=== PATIENT | female | born 1970 | race American Indian/Alaskan Native ===

== ENCOUNTER 2019-06-03 22:51 | Inpatient (IN) | payer SELFPAY ==
[2019-06-03] MEDS ORDERED: D50W (25GM) Syringe IV ONE (23:02)
[2019-06-03] MEDS ORDERED: LEVOPHED DRIP 4 MG/NS 250 ML 4 MG/250 ML BAG IV ONE (23:05)
[2019-06-03] MEDS ORDERED: NACL 0.9% 1000 ML 1,000 ML ONE (23:09)
[2019-06-03] MEDS ORDERED: LEVOPHED DRIP 4 MG/NS 250 ML 4 MG/250 ML BAG IV SCH (23:15)
[2019-06-03] MEDS ORDERED: NACL 0.9% 1000 ML 1,000 ML IV ONE (23:17)
--- NOTE | 2019-06-03 23:18 | Emergency Department Report ---
ED General Adult HPI - General Stated complaint: HYPOGLYCEMIA Time Seen by Provider: 06/03/19 22:52 Source: patient, EMS Mode of arrival: Stretcher Limitations: No Limitations - History of Present Illness Initial comments: Patient is a 49 -year-old female that presents emergency room with a syncopal episode. Patient was found down by EMS at home and became responsive after flui ds. Patient found to be hypoxic and bradycardic. Patient denies pain. Patient states she feels weak. Patient denies chest pain shortness of breath. Patient denies trauma. Patient is A&OX1. Patient is lethargic. report received from EMS. EMS states they placed the patient on normal saline and Levophed due to her potential. Patient was also paced by EMS. -: Sudden Consistency: intermittent - Related Data Home Medications Medication Instructions Recorded Confirmed Last Taken Apixaban [Eliquis] 1 tab PO Q12HR 06/04/19 06/04/19 Unknown Gabapentin [Neurontin] 300 mg PO QPM 06/04/19 06/04/19 Unknown Levothyroxine [Synthroid] 125 mcg PO QAM 06/04/19 06/04/19 Unknown Metoprolol Xl [Metoprolol 50 mg PO QDAY 06/04/19 06/04/19 Unknown SUCCINATE ER TAB] Torsemide [Demadex] 100 mg PO QDAY 06/04/19 06/04/19 Unknown Allergies Allergy/AdvReac Type Severity Reaction Status Date / Time No Known Allergies Allergy Verified 06/04/19 01:32 ED Review of Systems ROS: Stated complaint: HYPOGLYCEMIA Other details as noted in HPI Constitutional: weakness. denies: chills, fever Eyes: denies: eye pain, eye discharge, vision change ENT: denies: ear pain, throat pain Respiratory: denies: cough, shortness of breath, wheezing Cardiovascular: denies: chest pain, palpitations Endocrine: no symptoms reported Gastrointestinal: denies: abdominal pain, nausea, diarrhea Genitourinary: denies: urgency, dysuria, discharge Musculoskeletal: denies: back pain, joint swelling, arthralgia Skin: denies: rash, lesions Neurological: weakness, confusion. denies: headache, paresthesias Psychiatric: denies: anxiety, depression Hematological/Lymphatic: denies: easy bleeding, easy bruising ED Past Medical Hx - Past Medical History Previous Medical History?: Yes Hx Hypertension: Yes Hx Congestive Heart Failure: Yes Hx Diabetes: No Hx Liver Disease: No Hx Renal Disease: No Hx COPD: Yes Additional medical history: graves disease - Surgical History Past Surgical History?: No - Family History Family history: no significant - Social History Smoking Status: Former Smoker Substance Use Type: None - Medications Home Medications: Home Medications Medication Instructions Recorded Confirmed Last Taken Type Apixaban [Eliquis] 1 tab PO Q12HR 06/04/19 06/04/19 Unknown History Gabapentin [Neurontin] 300 mg PO QPM 06/04/19 06/04/19 Unknown History Levothyroxine [Synthroid] 125 mcg PO QAM 06/04/19 06/04/19 Unknown History Metoprolol Xl [Metoprolol 50 mg PO QDAY 06/04/19 06/04/19 Unknown History SUCCINATE ER TAB] Torsemide [Demadex] 100 mg PO QDAY 06/04/19 06/04/19 Unknown History ED Physical Exam - General Limitations: Altered Mental Status General appearance: in no apparent distress, lethargic - Head Head exam: Present: atraumatic, normocephalic - Eye Eye exam: Present: normal appearance - ENT ENT exam: Present: mucous membranes moist - Neck Neck exam: Present: normal inspection - Respiratory Respiratory exam: Present: normal lung sounds bilaterally. Absent: respiratory distress - Cardiovascular Cardiovascular Exam: Present: regular rate, normal rhythm. Absent: systolic murmur, diastolic murmur, rubs, gallop - GI/Abdominal GI/Abdominal exam: Present: soft, normal bowel sounds - Rectal Rectal exam: Present: deferred - Extremities Exam Extremities exam: Present: normal inspection - Back Exam Back exam: Present: normal inspection - Neurological Exam Neurological exam: Present: altered - Skin Skin exam: Present: warm, dry, intact, normal color. Absent: rash ED Course Vital Signs 06/03/19 06/03/19 06/03/19 19:24 19:30 19:46 Temperature Pulse Rate 136 H 141 H 130 H Respiratory 38 H 55 H 53 H Rate Blood Pressure O2 Sat by Pulse 98 95 99 Oximetry 06/03/19 06/03/19 06/03/19 20:00 20:16 23:00 Temperature Pulse Rate 134 H 136 H 75 Respiratory 47 H 59 H 24 Rate Blood Pressure O2 Sat by Pulse 100 98 Oximetry 06/03/19 06/03/19 06/03/19 23:16 23:30 23:35 Temperature 96.2 F L Pulse Rate 70 Respiratory 17 19 16 Rate Blood Pressure 110/87 93/70 55/23 O2 Sat by Pulse 95 90 Oximetry 06/03/19 06/04/19 06/04/19 23:46 00:00 00:15 Temperature Pulse Rate 79 75 Respiratory 17 25 H 22 Rate Blood Pressure 93/74 154/133 107/80 O2 Sat by Pulse Oximetry 06/04/19 06/04/19 06/04/19 00:30 00:46 01:00 Temperature Pulse Rate 69 79 Respiratory 21 23 19 Rate Blood Pressure 117/77 122/87 113/92 O2 Sat by Pulse 67 L Oximetry 06/04/19 06/04/19 06/04/19 01:15 01:20 01:30 Temperature Pulse Rate 72 75 Respiratory 20 Rate Blood Pressure 122/89 116/70 116/70 O2 Sat by Pulse 98 Oximetry 06/04/19 06/04/19 06/04/19 01:46 02:00 02:15 Temperature Pulse Rate 61 59 L 54 L Respiratory 20 20 21 Rate Blood Pressure 90/51 86/49 73/39 O2 Sat by Pulse 100 100 100 Oximetry 06/04/19 06/04/19 06/04/19 02:58 03:00 03:15 Temperature Pulse Rate 53 L 52 L Respiratory 20 20 Rate Blood Pressure 73/39 96/67 92/60 O2 Sat by Pulse 96 97 Oximetry 06/04/19 06/04/19 06/04/19 03:30 03:43 03:45 Temperature Pulse Rate 55 L 50 L Respiratory 20 20 Rate Blood Pressure 90/61 97/58 O2 Sat by Pulse 100 100 83 L Oximetry 06/04/19 06/04/19 06/04/19 04:00 04:15 04:30 Temperature Pulse Rate 53 L 60 Respiratory 20 15 17 Rate Blood Pressure 96/58 94/62 96/66 O2 Sat by Pulse Oximetry 06/04/19 06/04/19 06/04/19 04:45 05:00 05:08 Temperature 98.2 F Pulse Rate 49 L 52 L Respiratory 20 13 Rate Blood Pressure 105/70 72/34 O2 Sat by Pulse 100 Oximetry 06/04/19 06/04/19 06/04/19 05:15 05:30 05:35 Temperature Pulse Rate 106 H 114 H Respiratory 21 22 Rate Blood Pressure 152/113 148/112 O2 Sat by Pulse 100 76 L 99 Oximetry 06/04/19 06/04/19 06/04/19 05:45 06:00 06:15 Temperature Pulse Rate 77 78 96 H Respiratory 20 20 20 Rate Blood Pressure 91/61 117/75 137/92 O2 Sat by Pulse 89 68 L 72 L Oximetry 06/04/19 06/04/19 06/04/19 06:30 06:45 06:54 Temperature Pulse Rate 90 78 Respiratory 20 20 Rate Blood Pressure 110/77 102/61 O2 Sat by Pulse 75 L 100 97 Oximetry 06/04/19 06/04/19 06/04/19 07:00 07:15 07:30 Temperature Pulse Rate 76 87 Respiratory 20 20 20 Rate Blood Pressure 92/55 114/77 129/94 O2 Sat by Pulse 92 69 L 89 Oximetry 06/04/19 06/04/19 06/04/19 07:45 07:52 08:00 Temperature Pulse Rate 101 H 60 109 H Respiratory 20 19 Rate Blood Pressure 138/91 132/94 O2 Sat by Pulse 87 98 85 Oximetry 06/04/19 06/04/19 06/04/19 08:15 08:30 08:45 Temperature Pulse Rate 104 H 100 H 103 H Respiratory 20 20 20 Rate Blood Pressure 130/93 122/92 122/87 O2 Sat by Pulse 86 88 89 Oximetry 06/04/19 06/04/19 06/04/19 09:00 09:15 09:30 Temperature Pulse Rate 101 H 104 H 103 H Respiratory 20 20 20 Rate Blood Pressure 110/88 118/85 113/84 O2 Sat by Pulse 88 89 89 Oximetry 06/04/19 09:45 Temperature Pulse Rate 97 H Respiratory 20 Rate Blood Pressure 118/80 O2 Sat by Pulse 90 Oximetry - Reevaluation(s) Reevaluation #1: Initial evaluation done. Patient found to be hypotensive and bradycardic. Patient also found to be hypoglycemic. Patient given 2 Amps of D50. glucose 21.. 06/03/19 22:52 Reevaluation #2: Central line placed due to patient on Levophed and hypotension. Patient's blood pressure improved. Patient had a right femoral line placed, see procedure note. While placing central line the patient became hypoxic and decreased responsiveness. Patient was then intubated. 06/04/19 00:47 Reevaluation #3: Blood pressure improving. Patient is on a vent. Patient resting comfortably. Patient on Levophed drip and drip will be decreased as blood pressure continues to improve. 06/04/19 01:34 - Consultations Consultation #1: Nephrology consulted, Dr. Perkins. Dr. Burgos recommends admission and agrees with insulin, D50, Kayexalate and calcium. No further orders received from nephrology. 06/04/19 01:44 Consultation #2: Hospitalist consult for admission. Hospitalist to admit patient. 06/04/19 03:33 - Central Line Placement Right Femoral Consent Obtained: emergent situation Time Out Performed: Yes Patient Placed on Monitor/Pulse Ox: Yes MD Prep: mask, gown, gloves Central Line Prep: Chlorhexidine scrub, sterile drapes applied Local Anesthesia Used: Lidocaine 1% Ultrasound Used for Placement: Yes Central Line Lumen Inserted: triple Bloods Obtained for Lab: No Central Line Position: good blood return, all ports aspirated, flus, sutured in place with 2-0 Dressing Applied: Tegaderm Patient Tolerated Procedure: well, no complications - Intubation Time Out Performed: Yes Sedative: Etomidate Paralytic: Rocuronium Laryngoscope: fiberoptic video scope Assist Device Used: fiberoptic device ET Tube Size: 7.5 Tube Secured Depth (cm): 22 Tube Secured Location: teeth Tube Placement Confirmation: visualized tube passing t, equal breath sounds bilat, no breath sounds over epi, confirmation by capnometr Patient Tolerated Procedure: well, no complications Intubation Complications: none ED Medical Decision Making - Lab Data Result diagrams: 06/04/19 04:41 06/04/19 04:41 - EKG Data -: EKG Interpreted by Me EKG shows normal: axis, intervals, QRS complexes, ST-T waves Rate: normal - EKG Data Interpretation: other (Sebastián) - Radiology Data Radiology results: report reviewed, image reviewed interpreted by me: Patient ET tube in good placement. CHEST 1 VIEW 06/04/2019 12:55 AM INDICATION / CLINICAL INFORMATION: intubation. COMPARISON: Chest x-ray 06/03/2019 FINDINGS: SUPPORT DEVICES: ET tube has tip 4 cm above shannon. HEART / MEDIASTINUM: Cardiac silhouette remains markedly enlarged with globular configuration, unchanged. LUNGS / PLEURA: The left lower lobe is not visualized secondary to the markedly enlarged cardiac silhouette. No large effusion or definite infiltrate is seen however. No significant pulmonary or pleural abnormality. No pneumothorax. ADDITIONAL FINDINGS: No significant additional findings. IMPRESSION: 1. Marked cardiomegaly, unchanged. CT HEAD WITHOUT CONTRAST INDICATION / CLINICAL INFORMATION: Syncope. TECHNIQUE: All CT scans at this location are performed using CT dose reduction for ALARA by means of automated exposure control. COMPARISON: None available. FINDINGS: HEMORRHAGE: None. EXTRA-AXIAL SPACES: Normal in size and morphology for the patient's age. VENTRICULAR SYSTEM: Normal in size and morphology for the patient's age. CEREBRAL PARENCHYMA: Moderate periventricular and mild deep white matter microangiopathy No significant abnormality. No acute territorial infarct. MIDLINE SHIFT OR HERNIATION: None. CEREBELLUM / BRAINSTEM: No significant abnormality. ORBITS: Normal as visualized. SOFT TISSUES of HEAD: No significant abnormality. CALVARIUM: No significant abnormality. PARANASAL SINUSES / MASTOID AIR CELLS: Normal as visualized. ADDITIONAL FINDINGS: None. IMPRESSION: 1. No acute intracranial abnormality. 2. Mild to moderate microangiopathy - Medical Decision Making Patient is a 49-year-old female that presents to the ER for syncopal episode. Patient was reported by EMS. EMS found the patient to be hypotensive and bradycardic. Patient was started on a Levophed drip by EMS. While in the ER the patient had a central line placed for pressors. Patient will have the central line placed became hypoxic and decreased responsiveness and the patient was intubated. Patient improved well in the ER. Patient's labs are consistent with acute renal failure and multiple abnormalities and hyperkalemia. - Differential Diagnosis syncope. Dehydration. Hypotension. Critical Care Time: Yes Critical care attestation.: If time is entered above; I have spent that time in minutes in the direct care of this critically ill patient, excluding procedure time. Critical Care Time: 80 minutes ED Disposition Clinical Impression: Hypoxia, Hyperkalemia, Elevated troponin Syncope Qualifiers: Syncope type: unspecified Qualified Code(s): R55 - Syncope and collapse Altered mental state Qualifiers: Altered mental status type: unspecified Qualified Code(s): R41.82 - Altered mental status, unspecified Hypotension Qualifiers: Hypotension type: unspecified hypotension type Qualified Code(s): I95.9 - Hypotension, unspecified Afib Qualifiers: Atrial fibrillation type: unspecified Qualified Code(s): I48.91 - Unspecified atrial fibrillation Respiratory failure Qualifiers: Chronicity: acute Respiratory failure complication: hypoxia Qualified Code(s): J96.01 - Acute respiratory failure with hypoxia Disposition: 09 OP ADMIT IP TO THIS HOSP Is pt being admited?: Yes Does the pt Need Aspirin: No Condition: Critical Time of Disposition: 03:33
[2019-06-03 23:58] LABS: Mean Corpuscular HGB Conc 31 % (30-34); Mean Corpuscular Volume 91 fl (79-97); Red Cell Distribution Width 19.2 % (13.2-15.2)
[2019-06-03 23:59] LABS: Hematocrit 43.7 % (30.3-42.9); Hemoglobin 13.5 gm/dl (10.1-14.3); Platelet Count 172 K/mm3 (140-440)
--- NOTE | 2019-06-03 23:59 | XRay Report ---
CHEST 1 VIEW 06/03/2019 11:23 PM INDICATION / CLINICAL INFORMATION: Syncope. COMPARISON: None available. FINDINGS: SUPPORT DEVICES: None. HEART / MEDIASTINUM: Cardiac silhouette remains markedly enlarged. LUNGS / PLEURA: There is silhouetting of the left hemidiaphragm secondary to the enlarged cardiac reza houette, however, no large infiltrate or pleural effusion is seen. No significant pulmonary or pleura l abnormality. No pneumothorax. ADDITIONAL FINDINGS: No significant additional findings. IMPRESSION: 1. Marked cardiomegaly without CHF Signer Name: Jose Martin Morgan MD Signed: 06/03/2019 11:55 PM Workstation Name: [id number]
[2019-06-04 00:12] LABS: Albumin 3.2 g/dL (3.9-5); Calcium 8.8 mg/dL (8.4-10.2)
[2019-06-04] MEDS ORDERED: fentaNYL DRIP Premix 2,000 MCG/100 ML BAG IV ONE (00:44)
[2019-06-04] MEDS ORDERED: ZEMURON IV ONE ×2 (00:50→11:51)
[2019-06-04] MEDS ORDERED: AMIDATE IV ONE ×2 (00:50→11:51)
[2019-06-04] MEDS: fentaNYL DRIP Premix 2,000 MCG/100 ML BAG IV SCH ×2 (00:50→11:46)
[2019-06-04] MEDS ORDERED: MAXIPIME/NS 2 GM/100 ML 2 GM/100 ML BAG IV ONE (00:54)
[2019-06-04] MEDS ORDERED: CALCIUM CHLORIDE IV ONE (00:56)
[2019-06-04] MEDS ORDERED: HumuLIN R IV ONE (00:56)
[2019-06-04] MEDS ORDERED: D50W (25GM) Syringe IV ONE (00:56)
--- NOTE | 2019-06-04 01:28 | XRay Report ---
CHEST 1 VIEW 06/04/2019 12:55 AM INDICATION / CLINICAL INFORMATION: intubation. COMPARISON: Chest x-ray 06/03/2019 FINDINGS: SUPPORT DEVICES: ET tube has tip 4 cm above shannon. HEART / MEDIASTINUM: Cardiac silhouette remains markedly enlarged with globular configuration, unchan ged. LUNGS / PLEURA: The left lower lobe is not visualized secondary to the markedly enlarged cardiac silh ouette. No large effusion or definite infiltrate is seen however. No significant pulmonary or pleural abnormality. No pneumothorax. ADDITIONAL FINDINGS: No significant additional findings. IMPRESSION: 1. Marked cardiomegaly, unchanged. Signer Name: Jose Martin Morgan MD Signed: 06/04/2019 1:24 AM Workstation Name: [id number]
[2019-06-04 01:31] LABS: Chol/HDL Ratio 3.8 %
[2019-06-04 01:42] LABS: Band Neutrophils # (Manual) 0.2 K/mm3; Basophils % (Manual) 0 % (0.0-1.8); Eosinophils % (Manual) 0 % (0.0-4.3); Large Platelets 1+; Total Cells Counted 100
[2019-06-04 01:43] LABS: Platelet Estimate Consistent w Auto; RBC Morphology Normal
[2019-06-04] MEDS ORDERED: KIONEX PO ONE (01:44)
[2019-06-04] MEDS ORDERED: NACL 0.9% 1000 ML 1,000 ML IV ONE (03:14)
--- NOTE | 2019-06-04 03:16 | Cat Scan Report ---
CT HEAD WITHOUT CONTRAST INDICATION / CLINICAL INFORMATION: Syncope. TECHNIQUE: All CT scans at this location are performed using CT dose reduction for ALARA by means of automated e xposure control. COMPARISON: None available. FINDINGS: HEMORRHAGE: None. EXTRA-AXIAL SPACES: Normal in size and morphology for the patient's age. VENTRICULAR SYSTEM: Normal in size and morphology for the patient's age. CEREBRAL PARENCHYMA: Moderate periventricular and mild deep white matter microangiopathy No significa nt abnormality. No acute territorial infarct. MIDLINE SHIFT OR HERNIATION: None. CEREBELLUM / BRAINSTEM: No significant abnormality. ORBITS: Normal as visualized. SOFT TISSUES of HEAD: No significant abnormality. CALVARIUM: No significant abnormality. PARANASAL SINUSES / MASTOID AIR CELLS: Normal as visualized. ADDITIONAL FINDINGS: None. IMPRESSION: 1. No acute intracranial abnormality. 2. Mild to moderate microangiopathy Signer Name: Jose Martin Morgan MD Signed: 06/04/2019 3:12 AM Workstation Name: [email or web address]
[2019-06-04] MEDS ORDERED: KIONEX ONE (04:23)
[2019-06-04] MEDS ORDERED: INTROPIN DRIP 800 MG/D5W 250 ML 800 MG/250 ML BAG IV ONE (04:25)
[2019-06-04] MEDS ORDERED: ZOFRAN IV PRN (04:25)
[2019-06-04] MEDS ORDERED: SODIUM CHLORIDE FLUSH SYRINGE 10 ML IV PRN (04:25)
[2019-06-04] MEDS ORDERED: TYLENOL PO PRN (04:25)
--- NOTE | 2019-06-04 04:30 | History and Physical Report ---
History of Present Illness Date of examination: 06/04/19 History of present illness: 49-year-old woman with a history of hypertension, CHF, Graves' disease, COPD was brought to the emergency room for evaluation of unresponsiveness. In the emergency room she was bradycardic, hypotensive, started on Levophed drip and IV fluids. She was found to be in renal failure, unclear if this is new, status post cefepime and started on sedation, review of system is unobtainable PAST MEDICAL HISTORY:ypertension, CHF, Graves' disease, COPD PAST SURGICAL HISTORY: Unknown FAMILY HISTORY:Unknown SOCIAL HISTORY: Unknown Medications and Allergies Allergies Allergy/AdvReac Type Severity Reaction Status Date / Time No Known Allergies Allergy Verified 06/04/19 01:32 Active Meds: Active Medications Acetaminophen (Tylenol) 650 mg PO Q4H PRN PRN Reason: Pain MILD(1-3)/Fever >100.5/GOMEZ Enoxaparin Sodium (Lovenox) 30 mg SUB-Q QDAY SUN Fentanyl Citrate (Fentanyl Drip Premix) 2,000 mcg in 100 mls @ 4.581 mls/hr IV TITR SUN; Protocol Last Admin: 06/04/19 00:50 Dose: 2 mcg/kg/hr, 9.18 mls/hr Documented by: Norepinephrine (Levophed Drip 4 Mg/Ns 250 Ml) 4 mg in 250 mls @ 7.5 mls/hr IV TITR SUN; Protocol Last Titration: 06/04/19 02:01 Dose: 20 mcg/min, 75 mls/hr Documented by: Sodium Chloride (Nacl 0.9% 1000 Ml) 1,000 mls @ 250 mls/hr IV ONCE ONE Stop: 06/04/19 07:13 Sodium Chloride (Nacl 0.9% 1000 Ml) 1,000 mls @ 75 mls/hr IV DIRECT SUN Dopamine HCl/Dextrose (Intropin Drip 800 Mg/D5w 250 Ml) 800 mg in 250 mls @ 3.436 mls/hr IV TITR ONE; Protocol Stop: 06/07/19 05:10 Ondansetron HCl (Zofran) 4 mg IV Q8H PRN PRN Reason: Nausea And Vomiting Sodium Chloride (Sodium Chloride Flush Syringe 10 Ml) 10 ml IV BID SUN Sodium Chloride (Sodium Chloride Flush Syringe 10 Ml) 10 ml IV PRN PRN PRN Reason: LINE FLUSH Exam - Physical Exam Narrative exam: General Apperance: The patient lying in bed no acute distress, intubated HEENT: Normocephalic, atraumatic. Pupils pinpoint, equally round and reactive to light, unable to do extraocular movement intact, and no sclericterus or JVD or thyromegaly or nodule. Neck supple, no carotid bruit, mucous membranes moist, ET tube in place Heart: S1-S2, regular is rhythm Lungs: Clear to auscultation bilaterally, breathing comfortable Abdomen: Positive bowel sounds, soft, nondistended, no organomegaly Extremities: No edema cyanosis clubbing Skin: no rash, nodule, warm and dry Neuro: sedated - Constitutional Vitals: Temp Pulse Resp BP Pulse Ox 96.2 F L 50 L 20 90/61 100 06/03/19 23:35 06/04/19 03:43 06/04/19 03:30 06/04/19 03:43 06/04/19 03:43 Results - Labs CBC & Chem 7: 06/04/19 04:41 06/04/19 04:41 Labs: Abnormal lab results 06/03/19 06/03/19 06/03/19 Range/Units 23:05 23:31 23:31 Hct 43.7 H (30.3-42.9) % RDW 19.2 H (13.2-15.2) % Seg Neuts % (Manual) 85.0 H (40.0-70.0) % Lymphocytes % (Manual) 11.0 L (13.4-35.0) % Nucleated RBC % 6.0 H (0.0-0.9) % Lymphocytes # (Manual) 1.0 L (1.2-5.4) K/mm3 POC ABG pCO2 (35-45) POC ABG pO2 (80-105) Sodium 134 L (137-145) mmol/L Potassium 6.0 H (3.6-5.0) mmol/L Chloride 83.1 L (98-107) mmol/L Carbon Dioxide 20 L (22-30) mmol/L BUN 61 H (7-17) mg/dL Creatinine 4.0 H (0.7-1.2) mg/dL Glucose 299 H (65-100) mg/dL POC Glucose < 40 L (70-105) Total Bilirubin 5.20 H (0.1-1.2) mg/dL AST 139 H (5-40) units/L ALT 61 H (7-56) units/L Alkaline Phosphatase 194 H (35-129) units/L Total Creatine Kinase 1224 H (30-135) units/L CK-MB (CK-2) 29.0 H (0.0-4.0) ng/mL Troponin T 0.320 H* (0.00-0.029) ng/mL Total Protein 8.3 H (6.3-8.2) g/dL Albumin 3.2 L (3.9-5) g/dL HDL Cholesterol 26 L (40-59) mg/dL 06/04/19 06/04/19 06/04/19 Range/Units 00:54 03:40 04:01 Hct (30.3-42.9) % RDW (13.2-15.2) % Seg Neuts % (Manual) (40.0-70.0) % Lymphocytes % (Manual) (13.4-35.0) % Nucleated RBC % (0.0-0.9) % Lymphocytes # (Manual) (1.2-5.4) K/mm3 POC ABG pCO2 33.1 L (35-45) POC ABG pO2 122 H (80-105) Sodium 136 L (137-145) mmol/L Potassium (3.6-5.0) mmol/L Chloride 86.8 L (98-107) mmol/L Carbon Dioxide 19 L (22-30) mmol/L BUN 63 H (7-17) mg/dL Creatinine 4.3 H (0.7-1.2) mg/dL Glucose 192 H (65-100) mg/dL POC Glucose 260 H (70-105) Total Bilirubin (0.1-1.2) mg/dL AST (5-40) units/L ALT (7-56) units/L Alkaline Phosphatase (35-129) units/L Total Creatine Kinase (30-135) units/L CK-MB (CK-2) (0.0-4.0) ng/mL Troponin T (0.00-0.029) ng/mL Total Protein (6.3-8.2) g/dL Albumin (3.9-5) g/dL HDL Cholesterol (40-59) mg/dL - Imaging and Cardiology EKG: image reviewed Abdominal x-ray: report reviewed CT Scan - head: report reviewed Assessment and Plan Assessment Acute respiratory failure hypotension, rule out sepsis renal failure, ?Acute Hyperkalemia Bradycardia probably secondary to hyperkalemia Abnormal cardiac enzymes CHF, stable Graves' disease Plan Admit to medicine Continue sedation Start IV fluids, check cardiac enzymes, echo Consult cardiology, case discussed with Dr. Gunter Consult renal, obtain ultrasound of the kidneys Start Zosyn, vancomycin, obtain blood cultures Check BMP,pt/inr, LFT, TSH, check lactate, consult critical care DVT prophylaxis, check fingersticks
[2019-06-04] MEDS ORDERED: NACL 0.9% 1000 ML 1,000 ML IV SCH (05:00)
[2019-06-04 05:07] LABS: Hematocrit 42.1 % (30.3-42.9); Hemoglobin 13.2 gm/dl (10.1-14.3); Mean Corpuscular HGB Conc 31 % (30-34); Mean Corpuscular Volume 89 fl (79-97); Red Blood Count 4.71 M/mm3 (3.65-5.03)
[2019-06-04 05:10] LABS: INR 3.86 (0.87-1.13)
[2019-06-04 05:12] LABS: Partial Thromboplastin Time 47.5 Sec. (24.2-36.6)
[2019-06-04 05:16] LABS: Creatine Kinase MB 25.2 ng/mL (0.0-4.0)
[2019-06-04 05:23] LABS: Albumin 2.9 g/dL (3.9-5); Calcium 9.1 mg/dL (8.4-10.2)
--- NOTE | 2019-06-04 05:32 | XRay Report ---
ABDOMEN 1 VIEW(S) 06/04/2019 4:15 AM INDICATION / CLINICAL INFORMATION: og tube confirmation. COMPARISON: None available. FINDINGS: The tip of an esophagogastric tube projects over the proximal stomach with side hole noted at GE junc tion and should be advanced further distally. There is moderate gaseous distention of stomach.. Signer Name: Jose Martin Morgan MD Signed: 06/04/2019 5:27 AM Workstation Name: [email or web address]
[2019-06-04 05:46] LABS: Basophils % (Manual) 0 % (0.0-1.8); Eosinophils % (Manual) 0 % (0.0-4.3); Total Cells Counted 100
[2019-06-04 05:48] LABS: Anisocytosis 1+; Large Platelets 1+; Platelet Count 159 K/mm3 (140-440); Platelet Estimate Consistent w Auto
[2019-06-04 05:57] LABS: Albumin 2.8 g/dL (3.9-5); Bilirubin,Direct 2.6 mg/dL (0-0.2)
[2019-06-04] MEDS ORDERED: ZOSYN/NS 2.25 GM/50ML 2.25 GM/50 ML BAG IV SCH (06:00)
--- NOTE | 2019-06-04 06:29 | Ultrasound Report ---
ULTRASOUND RENAL INDICATION: arf. COMPARISON: No relevant prior imaging study available. FINDINGS: RIGHT KIDNEY: Size: 12.7 cm. Echogenicity: Echogenic. Cortical thickness: Normal. Hydronephrosis: None. Cyst or mass: None. Stones: None. LEFT KIDNEY: Size: 11.7 cm. Echogenicity: Echogenic. Cortical thickness: Normal. Hydronephrosis: None. Cyst or mass: None. Stones: None. Urinary Bladder: Collapsed containing Ribeiro catheter. Free Fluid: None. Additional Findings: None. IMPRESSION 1. Echogenic kidneys characteristic for medical renal disease. No hydronephrosis.. Signer Name: Jose Martin Morgan MD Signed: 06/04/2019 6:25 AM Workstation Name: [email or web address]
[2019-06-04] MEDS ORDERED: D50W (25GM) Syringe IV PRN (06:47)
[2019-06-04] MEDS ORDERED: VANCOMYCIN/NS 1 GM/250 ML 1 GM/250 ML BAG IV ONE (07:30)
[2019-06-04] MEDS ORDERED: PEPCID IV SCH (10:00)
[2019-06-04] MEDS ORDERED: LOVENOX SUB-Q SCH (10:00)
[2019-06-04] MEDS ORDERED: SODIUM CHLORIDE FLUSH SYRINGE 10 ML IV SCH (10:00)
[2019-06-04] MEDS ORDERED: SYNTHROID IV SCH (10:00)
--- NOTE | 2019-06-04 10:21 | Event Note ---
Date: 06/04/19 Remains on mechanical Vent support, noted propotosis, continue current management and plan, IV synthroid added, Free T4 Pending. Will consider Prop ranolol when off pressors.
[2019-06-04 11:00] LABS: Creatine Kinase MB 21.1 ng/mL (0.0-4.0)
--- NOTE | 2019-06-04 11:29 | Consultation ---
History of Present Illness Consult date: 06/04/19 Requesting physician: RICHARD MCNAMARA Reason for consult: other (Acute Hypoxemic Resp Failure; CMOP) History of present illness: PULMONARY/CCM CONSULT NOTE (Full dictation # [id number]) Please see dictated notes for full details Medications and Allergies Allergies Allergy/AdvReac Type Severity Reaction Status Date / Time No Known Allergies Allergy Verified 06/04/19 01:32 Home Medications Medication Instructions Recorded Confirmed Last Taken Type Apixaban [Eliquis] 1 tab PO Q12HR 06/04/19 06/04/19 Unknown History Gabapentin [Neurontin] 300 mg PO QPM 06/04/19 06/04/19 Unknown History Levothyroxine [Synthroid] 125 mcg PO QAM 06/04/19 06/04/19 Unknown History Metoprolol Xl [Metoprolol 50 mg PO QDAY 06/04/19 06/04/19 Unknown History SUCCINATE ER TAB] Torsemide [Demadex] 100 mg PO QDAY 06/04/19 06/04/19 Unknown History Active Meds: Active Medications Acetaminophen (Tylenol) 650 mg PO Q4H PRN PRN Reason: Pain MILD(1-3)/Fever >100.5/GOMEZ Dextrose (D50w (25gm) Syringe) 50 ml IV PRN PRN PRN Reason: Hypoglycemia Famotidine (Pepcid) 20 mg IV DAILY SUN Fentanyl Citrate (Fentanyl Drip Premix) 2,000 mcg in 100 mls @ 4.581 mls/hr IV TITR SUN; Protocol Last Admin: 06/04/19 00:50 Dose: 2 mcg/kg/hr, 9.18 mls/hr Documented by: Sodium Chloride (Nacl 0.9% 1000 Ml) 1,000 mls @ 75 mls/hr IV DIRECT SUN Dopamine HCl/Dextrose (Intropin Drip 800 Mg/D5w 250 Ml) 800 mg in 250 mls @ 3.436 mls/hr IV TITR ONE; Protocol Stop: 06/07/19 05:10 Last Titration: 06/04/19 06:17 Dose: 2 mcg/kg/min, 3.436 mls/hr Documented by: Piperacillin Sod/Tazobactam Sod (Zosyn/Ns 2.25 Gm/50ml) 2.25 gm in 50 mls @ 100 mls/hr IV Q8H SUN; Protocol Last Admin: 06/04/19 08:05 Dose: 100 mls/hr Documented by: Levothyroxine Sodium (Synthroid) 100 mcg IV DAILY@0600 [facility] Ondansetron HCl (Zofran) 4 mg IV Q8H PRN PRN Reason: Nausea And Vomiting Sodium Chloride (Sodium Chloride Flush Syringe 10 Ml) 10 ml IV BID [facility] Sodium Chloride (Sodium Chloride Flush Syringe 10 Ml) 10 ml IV PRN PRN PRN Reason: LINE FLUSH Physical Examination Vital signs: Vital Signs Pulse Resp Pulse Ox 136 H 38 H 98 06/03/19 19:24 06/03/19 19:24 06/03/19 19:24 Results - Laboratory Findings CBC and BMP: 06/04/19 04:41 06/04/19 04:41 ABG POC ABG pH 7.426 (7.35-7.45) 06/04/19 04:01 POC ABG pCO2 33.1 (35-45) L 06/04/19 04:01 POC ABG pO2 122 (80-105) H 06/04/19 04:01 POC ABG HCO3 21.8 (22-26 mml/L) 06/04/19 04:01 POC ABG Total CO2 23 (23-27mmol/L) 06/04/19 04:01 POC ABG O2 Sat 99 06/04/19 04:01 PT/INR, D-dimer PT 37.4 Sec. (12.2-14.9) H 06/04/19 04:41 INR 3.86 (0.87-1.13) H 06/04/19 04:41 Abnormal lab findings: Abnormal Labs 06/03/19 06/03/19 06/03/19 23:05 23:31 23:31 Hct 43.7 H RDW 19.2 H Seg Neuts % (Manual) 85.0 H Lymphocytes % (Manual) 11.0 L Nucleated RBC % 6.0 H Seg Neutrophils # Man Lymphocytes # (Manual) 1.0 L PT INR APTT POC ABG pCO2 POC ABG pO2 Sodium 134 L Potassium 6.0 H Chloride 83.1 L Carbon Dioxide 20 L BUN 61 H Creatinine 4.0 H Glucose 299 H POC Glucose < 40 L Total Bilirubin 5.20 H Direct Bilirubin AST 139 H ALT 61 H Alkaline Phosphatase 194 H Total Creatine Kinase 1224 H CK-MB (CK-2) 29.0 H Troponin T 0.320 H* Total Protein 8.3 H Albumin 3.2 L HDL Cholesterol 26 L TSH 06/04/19 06/04/19 06/04/19 00:54 03:40 04:01 Hct RDW Seg Neuts % (Manual) Lymphocytes % (Manual) Nucleated RBC % Seg Neutrophils # Man Lymphocytes # (Manual) PT INR APTT POC ABG pCO2 33.1 L POC ABG pO2 122 H Sodium 136 L Potassium Chloride 86.8 L Carbon Dioxide 19 L BUN 63 H Creatinine 4.3 H Glucose 192 H POC Glucose 260 H Total Bilirubin Direct Bilirubin AST ALT Alkaline Phosphatase Total Creatine Kinase CK-MB (CK-2) Troponin T 0.276 H* Total Protein Albumin HDL Cholesterol TSH 06/04/19 06/04/19 06/04/19 04:41 04:41 04:41 Hct RDW 19.0 H Seg Neuts % (Manual) 89.0 H Lymphocytes % (Manual) 8.0 L Nucleated RBC % 5.0 H Seg Neutrophils # Man 0.0 L Lymphocytes # (Manual) 0.0 L PT 37.4 H INR 3.86 H APTT 47.5 H POC ABG pCO2 POC ABG pO2 Sodium 135 L Potassium Chloride 85.0 L Carbon Dioxide 18 L BUN 61 H Creatinine 4.3 H Glucose 183 H POC Glucose Total Bilirubin 5.30 H Direct Bilirubin AST 141 H ALT 63 H Alkaline Phosphatase 192 H Total Creatine Kinase CK-MB (CK-2) Troponin T Total Protein Albumin 2.9 L HDL Cholesterol TSH 06/04/19 06/04/19 06/04/19 04:41 04:41 06:58 Hct RDW Seg Neuts % (Manual) Lymphocytes % (Manual) Nucleated RBC % Seg Neutrophils # Man Lymphocytes # (Manual) PT INR APTT POC ABG pCO2 POC ABG pO2 Sodium Potassium Chloride Carbon Dioxide BUN Creatinine Glucose POC Glucose 186 H Total Bilirubin 5.50 H Direct Bilirubin 2.6 H AST 147 H ALT 63 H Alkaline Phosphatase 198 H Total Creatine Kinase 1095 H CK-MB (CK-2) 25.2 H Troponin T 0.241 H* Total Protein Albumin 2.8 L HDL Cholesterol TSH 06/04/19 06/04/19 07:03 10:28 Hct RDW Seg Neuts % (Manual) Lymphocytes % (Manual) Nucleated RBC % Seg Neutrophils # Man Lymphocytes # (Manual) PT INR APTT POC ABG pCO2 POC ABG pO2 Sodium Potassium Chloride Carbon Dioxide BUN Creatinine Glucose POC Glucose Total Bilirubin Direct Bilirubin AST ALT Alkaline Phosphatase Total Creatine Kinase 970 H CK-MB (CK-2) 21.1 H Troponin T 0.270 H* Total Protein Albumin HDL Cholesterol TSH 9.160 H
--- NOTE | 2019-06-04 12:08 | Consultation ---
History of Present Illness Consult date: 06/04/19 Consult reason: abnormal cardiac enzymes History of present illness: Patient is a 49-year old woman who was brought in after she was found unresp onsive. Patient was admitted to CCU and is currently unresponsive on the ventilator. Initial labs revealed multiple metabolic abnormalities including severe hypoglycemia, hyperkalemia, renal insufficiency with a creatinine of 4.3, elevated bilirubin with an INR of 3.8 and a TSH of 9.1. Cardiac enzymes shows a CK/MB of 1224 with a normal relative index, consistent with rhabdomyolysis. 12 lead ECG is atrial fibrillation with low voltage. Ventricular rate is well controlled. Review of [place] records shows the patient has a history of Hypertrophic Cardiomyopathy and permanent Atrial fibrillation on eliquis for oral anticoagulation. Patient also has Graves disease status post thyroidectomy, pulm onary hypertension and hypertension. Medications and Allergies Allergies Allergy/AdvReac Type Severity Reaction Status Date / Time No Known Allergies Allergy Verified 06/04/19 01:32 Active Meds: Active Medications Acetaminophen (Tylenol) 650 mg PO Q4H PRN PRN Reason: Pain MILD(1-3)/Fever >100.5/GOMEZ Dextrose (D50w (25gm) Syringe) 50 ml IV PRN PRN PRN Reason: Hypoglycemia Famotidine (Pepcid) 20 mg IV DAILY SUN Last Admin: 06/04/19 11:47 Dose: 20 mg Documented by: Fentanyl Citrate (Fentanyl Drip Premix) 2,000 mcg in 100 mls @ 4.581 mls/hr IV TITR SUN; Protocol Last Admin: 06/04/19 11:46 Dose: 2 mcg/kg/hr, 9.163 mls/hr Documented by: Sodium Chloride (Nacl 0.9% 1000 Ml) 1,000 mls @ 75 mls/hr IV DIRECT SUN Last Admin: 06/04/19 11:48 Dose: 75 mls/hr Documented by: Dopamine HCl/Dextrose (Intropin Drip 800 Mg/D5w 250 Ml) 800 mg in 250 mls @ 3.436 mls/hr IV TITR ONE; Protocol Stop: 06/07/19 05:10 Last Titration: 06/04/19 06:17 Dose: 2 mcg/kg/min, 3.436 mls/hr Documented by: Piperacillin Sod/Tazobactam Sod (Zosyn/Ns 2.25 Gm/50ml) 2.25 gm in 50 mls @ 100 mls/hr IV Q8H [facility]; Protocol Last Admin: 06/04/19 08:05 Dose: 100 mls/hr Documented by: Levothyroxine Sodium (Synthroid) 100 mcg IV DAILY@0600 [facility] Ondansetron HCl (Zofran) 4 mg IV Q8H PRN PRN Reason: Nausea And Vomiting Sodium Chloride (Sodium Chloride Flush Syringe 10 Ml) 10 ml IV BID SUN Last Admin: 06/04/19 11:47 Dose: 10 ml Documented by: Sodium Chloride (Sodium Chloride Flush Syringe 10 Ml) 10 ml IV PRN PRN PRN Reason: LINE FLUSH Physical Examination Vital Signs Pulse Resp Pulse Ox 136 H 38 H 98 06/03/19 19:24 06/03/19 19:24 06/03/19 19:24 General appearance: other (unresponsive on the vent) Cardiac: Positive: irregularly irregular Results 06/04/19 04:41 06/04/19 04:41 Cardiac Enzymes 06/03/19 06/04/19 06/04/19 Range/Units 23:31 04:41 04:41 AST 139 H 141 H (5-40) units/L CK-MB (CK-2) 29.0 H 25.2 H (0.0-4.0) ng/mL 06/04/19 06/04/19 Range/Units 04:41 10:28 AST 147 H (5-40) units/L CK-MB (CK-2) 21.1 H (0.0-4.0) ng/mL Coagulation 06/04/19 Range/Units 04:41 PT 37.4 H (12.2-14.9) Sec. INR 3.86 H (0.87-1.13) APTT 47.5 H (24.2-36.6) Sec. Lipids 06/03/19 Range/Units 23:31 Triglycerides 117 (2-149) mg/dL Cholesterol 99 (50-199) mg/dL HDL Cholesterol 26 L (40-59) mg/dL Cholesterol/HDL Ratio 3.80 % CBC 06/03/19 06/04/19 Range/Units 23:31 04:41 WBC 8.7 10.8 (4.5-11.0) K/mm3 RBC 4.80 4.71 (3.65-5.03) M/mm3 Hgb 13.5 13.2 (10.1-14.3) gm/dl Hct 43.7 H 42.1 (30.3-42.9) % Plt Count 172 159 (140-440) K/mm3 Comprehensive Metabolic Panel 06/03/19 06/04/19 06/04/19 Range/Units 23:31 03:40 04:41 Sodium 134 L 136 L 135 L (137-145) mmol/L Potassium 6.0 H 4.5 D 4.4 (3.6-5.0) mmol/L Chloride 83.1 L 86.8 L 85.0 L (98-107) mmol/L Carbon Dioxide 20 L 19 L 18 L (22-30) mmol/L BUN 61 H 63 H 61 H (7-17) mg/dL Creatinine 4.0 H 4.3 H 4.3 H (0.7-1.2) mg/dL Glucose 299 H 192 H 183 H (65-100) mg/dL Calcium 8.8 9.0 9.1 (8.4-10.2) mg/dL Direct Bilirubin (0-0.2) mg/dL Indirect Bilirubin mg/dL AST 139 H 141 H (5-40) units/L ALT 61 H 63 H (7-56) units/L Alkaline Phosphatase 194 H 192 H (35-129) units/L Total Protein 8.3 H 8.1 (6.3-8.2) g/dL Albumin 3.2 L 2.9 L (3.9-5) g/dL 06/04/19 Range/Units 04:41 Sodium (137-145) mmol/L Potassium (3.6-5.0) mmol/L Chloride (98-107) mmol/L Carbon Dioxide (22-30) mmol/L BUN (7-17) mg/dL Creatinine (0.7-1.2) mg/dL Glucose (65-100) mg/dL Calcium (8.4-10.2) mg/dL Direct Bilirubin 2.6 H (0-0.2) mg/dL Indirect Bilirubin 2.9 mg/dL AST 147 H (5-40) units/L ALT 63 H (7-56) units/L Alkaline Phosphatase 198 H (35-129) units/L Total Protein 8.1 (6.3-8.2) g/dL Albumin 2.8 L (3.9-5) g/dL Assessment and Plan Hypoglycemia Elevated bilirubin Renal insufficiency Hx of Hypertrophic Cardiomyopathy Permanent Atrial fibrillation on eliquis for oral anticoagulation as an outpatient. Hx of Graves disease status post thyroidectomy TSH 9.1. Pulmonary hypertension Hypertension
[2019-06-04] MEDS ORDERED: PANCREAZE DR 10,500 UNIT FEEDTUBE PRN (14:42)
[2019-06-04] MEDS ORDERED: SIMPLE SYRUP FEEDTUBE PRN ×2 (14:42)
[2019-06-04] MEDS ORDERED: SODIUM BICARBONATE FEEDTUBE PRN (14:42)
--- NOTE | 2019-06-04 15:50 | History and Physical Report ---
History of Present Illness Date of examination: 06/04/19 Date of admission: 06/04/19 04:02 Chief complaint: unresponsive History of present illness: Patient is a 49-year old woman who was brought in after she was found unresponsive. Patient was admitted to CCU and is currently unresponsive on the ventilator. Initial labs revealed multiple metabolic abnormalities including severe hypoglycemia, hyperkalemia, renal injury with a creatinine of 4.3, elevated bilirubin with an INR of 3.8 and a TSH of 9.1. Discussion with family at bedside reveals history of cardiomyopathy and pulmonary hypertension; cardiology team has been consulted and plan for transfer to [facility] for potential pulmonary vasodilator therapy. Past History Past Medical History: other (unable to obtain full history from patient) Medications and Allergies Allergies Allergy/AdvReac Type Severity Reaction Status Date / Time No Known Allergies Allergy Verified 06/04/19 01:32 Home Medications Medication Instructions Recorded Confirmed Last Taken Type Apixaban [Eliquis] 1 tab PO Q12HR 06/04/19 06/04/19 Unknown History Gabapentin [Neurontin] 300 mg PO QPM 06/04/19 06/04/19 Unknown History Levothyroxine [Synthroid] 125 mcg PO QAM 06/04/19 06/04/19 Unknown History Metoprolol Xl [Metoprolol 50 mg PO QDAY 06/04/19 06/04/19 Unknown History SUCCINATE ER TAB] Torsemide [Demadex] 100 mg PO QDAY 06/04/19 06/04/19 Unknown History Active Meds: Active Medications Acetaminophen (Tylenol) 650 mg PO Q4H PRN PRN Reason: Pain MILD(1-3)/Fever >100.5/GOMEZ Lipase/Protease/Amylase (Pancreaze Dr 10,500 Unit) 1 each FEEDTUBE PRN PRN PRN Reason: For Clogged Feeding Tube Dextrose (D50w (25gm) Syringe) 50 ml IV PRN PRN PRN Reason: Hypoglycemia Famotidine (Pepcid) 20 mg IV DAILY [facility] Last Admin: 06/04/19 11:47 Dose: 20 mg Documented by: Fentanyl Citrate (Fentanyl Drip Premix) 2,000 mcg in 100 mls @ 4.581 mls/hr IV TITR [facility]; Protocol Last Admin: 06/04/19 11:46 Dose: 2 mcg/kg/hr, 9.163 mls/hr Documented by: Sodium Chloride (Nacl 0.9% 1000 Ml) 1,000 mls @ 75 mls/hr IV DIRECT [facility] Last Admin: 06/04/19 11:48 Dose: 75 mls/hr Documented by: Dopamine HCl/Dextrose (Intropin Drip 800 Mg/D5w 250 Ml) 800 mg in 250 mls @ 3.436 mls/hr IV TITR ONE; Protocol Stop: 06/07/19 05:10 Last Titration: 06/04/19 06:17 Dose: 2 mcg/kg/min, 3.436 mls/hr Documented by: Ondansetron HCl (Zofran) 4 mg IV Q8H PRN PRN Reason: Nausea And Vomiting Simple Syrup (Simple Syrup) 15 ml FEEDTUBE PRN PRN PRN Reason: Hypoglycemia Simple Syrup (Simple Syrup) 30 ml FEEDTUBE PRN PRN PRN Reason: Hypoglycemia Sodium Bicarbonate (Sodium Bicarbonate) 325 mg FEEDTUBE PRN PRN PRN Reason: For Clogged Feeding Tube Sodium Chloride (Sodium Chloride Flush Syringe 10 Ml) 10 ml IV BID [facility] Last Admin: 06/04/19 11:47 Dose: 10 ml Documented by: Sodium Chloride (Sodium Chloride Flush Syringe 10 Ml) 10 ml IV PRN PRN PRN Reason: LINE FLUSH Review of Systems ROS unobtainable: due to mental status Exam - Vital Signs Vital signs: Vital Signs Pulse Resp Pulse Ox 136 H 38 H 98 06/03/19 19:24 06/03/19 19:24 06/03/19 19:24 - Physical Exam Narrative exam: General Appearance: ill appearing, intubated HEENT: Normocephalic, atraumatic. ET tube in place Heart: S1-S2, regular is rhythm Lungs: Clear to auscultation bilaterally but coarse mechanical sounds Abdomen: Positive bowel sounds, soft, nondistended Extremities: No edema cyanosis clubbing Skin: no rash, nodule, warm and dry Neuro: sedated Results - Lab Results 06/04/19 04:41 06/04/19 04:41 Most recent lab results Calcium 9.1 mg/dL (8.4-10.2) 06/04/19 04:41 Assessment and Plan Assessment: This is a 49 year old woman with cardiomyopathy and pulmonary hypertension who presents with unresponsiveness. She likely has underlying CKD but no prior data to refer; however, she is at high risk of requiring renal replacement therapy given her minimal urine output and uptrending creatinine. Have discussed this extensively with family at bedside, who is amenable to dialysis if needed. Suspect cardiorenal physiology contributing to acute kidney injury. Renal ultrasound without obstruction. Plan: -reviewed cardiology and pulmonary notes -diurese as possible -low threshold for renal replacement therapy for assistance with volume removal, but no indication to start acutely given stable electrolytes -follow up urinalysis -strict Is/Os -avoid nephrotoxins -renally dose all medications Thank you for this consult; we will continue to follow with you regarding any renal related issues.
[2019-06-04] MEDS ORDERED: ISOPTO TEARS 0.5% OU PRN (15:52)
[2019-06-04 16:18] VITALS: BP 89/56
[2019-06-05] MEDS ORDERED: SYNTHROID PO SCH (06:00)
--- NOTE | 2019-06-05 07:17 | Discharge Summary ---
Providers - Providers Date of Admission: 06/04/19 04:02 Attending physician: ELAN ACEVES MD 06/04/19 01:43 Consult to Physician [CONS] Routine Comment: Dr. Valenzuela spoke with Dr. Dacosta @ 0141 Consulting Provider: FRANCISCO DACOSTA Physician Instructions: Reason For Exam: renal failure. hyperkalemia 06/04/19 04:25 Consult to Physician [CONS] Routine Comment: Consulting Provider: JUHI SOLER Physician Instructions: Reason For Exam: cc 06/04/19 04:28 Consult to Physician [CONS] Routine Comment: Dr. Pickens spoke with Dr. Holder @ 0431 Consulting Provider: VENANCIO BROCK Physician Instructions: Reason For Exam: ab ce 06/04/19 12:32 Consult to Dietitian/Nutrition [CONS] Routine Physician Instructions: Reason For Exam: Reason for Consult: Write/Manage Tube Feeding Primary care physician: SALES TRAINING COORDINATOR Hospitalization Reason for admission: unresponsive Condition: Critical Hospital course: 49-year-old woman with a history of hypertension, CHF, Graves' disease, COPD was brought to the emergency room for evaluation of unresponsiveness. In the emergency room she was bradycardic, hypotensive, started on Levophed drip and IV fluids. She was found to be in renal failure, unclear if this is new, status post cefepime and started on sedation, review of system is unobtainable She was intubated and continue managing in the ICU. Laboratories were checked. Cardiology and childcare worker assisted with management. After installation of appropriate home medication cardiology did review extensive records from outside facility does not then the pericardial synthesis is not indicated at this time as there is no evidence of cardiac tamponade. Effusion was noted to be chronic. Attack on admission was held due to INR being greater than 3. Continue treatment for hypothyroidism is most likely etiology behind the rhabdomyolysis. Following discussion with [facility] Dr. Byron Recinos physical immunodeficiency distended on pulmonary vasodilator therapy and transferred to [facility] for IV prostaglandins treatment. Hypertrophic cardiomyopathy with a history of negative biopsy for amyloid 12/2015 Pulmonary hypertension (post-capillary) secondary to diastolic heart failure, deemed not a candidate for vasodilator therapy by pulmonary at [place] Chronic RV dilatation and dysfunction with severe biatrial enlargement [facility] at [facility] 03/2018: CI 1.46; PAP 73/20/36; RV 62/16; PVR 7.4 GUNN Paroxysmal atrial fibrillation on eliquis as outpatient Chronic large pericardial effusion with no evidence of tamponade Pericardial effusion was also documented on previous echoes done at [facility] Non-specific troponin in the setting of acute renal failure and severe metabolic derangements Acute renal failure with patient being on torsemide at home Cardio-hepatic congestion with secondary elevated bilirubin and INR Rhabdomyolysis with patient being on lipitor 40 mg at home Graves disease s/p thyroidectomy Hypoglycemia - resolved Hyperkalemia - resolved Disposition: DC/TX-70 ANOTHER TYPE HLTHCARE Time spent for discharge: 35 mins Core Measure Documentation - Palliative Care Palliative Care/ Comfort Measures: Not Applicable - Core Measures Any of the following diagnoses?: none Exam - Physical Exam Narrative exam: VITAL SIGNS: Reviewed. GENERAL: The patient appears chronically ill, otherwise intubated very ill- appearing, Vital signs as documented. HEAD: No signs of head trauma. EYES: Pupils are equal. Pronounced proptosis Extraocular motions intact. EARS: Unresponsive MOUTH: Oral ET tube in place. NECK: No adenopathy, no JVD. CHEST: Chest with diminished breath sounds bilaterally although with coarse mechanical sounds. No wheezes, rales, or rhonchi. CARDIAC: Regular rate and rhythm. S1 and S2, without murmurs, gallops, or rubs. VASCULAR: No Edema. Peripheral pulses normal and equal in all extremities. ABDOMEN: Soft, non tender and non distended. No rebound or guarding, and no masses palpated. Bowel Sounds normal. MUSCULOSKELETAL: Good range of motion of all major joints. Extremities without clubbing, cyanosis or edema. NEUROLOGIC EXAM: Unresponsive PSYCHIATRIC: Unresponsive SKIN: detail exam as documented in skin assessment - Constitutional Vitals: Temp Pulse Resp BP Pulse Ox 98.2 F 106 H 14 89/56 96 06/04/19 05:08 06/04/19 17:30 06/04/19 16:10 06/04/19 16:10 06/04/19 17:30 Plan Follow up with: PRIMARY MD GINNY [Primary Care Provider] - 3-5 Days
--- NOTE | 2019-06-05 08:06 | Consultation ---
PULMONARY CRITICAL CARE CONSULT NOTE CONSULTING PHYSICIAN: Dr. Ashlee Pickens. REASON FOR CONSULTATION: Acute hypoxemic respiratory failure and acute encephalopathy. CHIEF COMPLAINT AND HISTORY OF PRESENT ILLNESS: The patient is a 49-year-old -[place] female with past medical history significant amongst other things for a diagnosis of Graves' disease, was brought into the Emergency Room with a reported syncopal episode. She was found down by emergency medical services at home. She became unresponsive. She was hypoxemic, bradycardic. She was able to talk in the Emergency Room, denied any chest pains, just said that she was very weak. She denied any trauma. In retrospect, now it seems she has a history of severe pulmonary hypertension and she was again stabilized in the Emergency Room. While in the Emergency Room, the patient decompensated and required emergent intubation. We are asked to assist with management. When I stopped by to see her, she was resting in the bed, not responding appropriately or following commands. She was on a little bit of sedation at that time. I do not have any history of vomiting or overt aspiration. Family denies any prior similar episodes in the past. We just begin to piece the story together. She apparently also has a history of you know hypothyroidism. At this time, she appears like she may have had a thyroidectomy as part of the treatment for her Graves' disease and has reported history of COPD. With regards to tobacco use/abuse history, as far as we know, she is not a current smoker. This really is as much of the history of presentation that we have. PAST MEDICAL HISTORY: Cardiomyopathy, hypertension, congestive heart failure, Graves' disease, chronic obstructive lung disease and a history of pulmonary hypertension. PAST SURGICAL HISTORY: History of thyroidectomy. MEDICATIONS: She was on at the time I stopped by to see her were reviewed. Pertinent medications include are the following: Tylenol 650 mg p.o. q. 4 hours p.r.n. mild pain or fevers, a dopamine drip was going at, I believe, about 5 mcg per kilogram per minute, Pepcid 20 mg IV daily, fentanyl 1 mcg/kg per hour, Zofran 4 mg IV q. 8 hours p.r.n. nausea and vomiting. ALLERGIES: No known drug allergies. DIET: Obese lady actually. Family denies acute weight loss or gain in the preceding few weeks to months. FAMILY AND SOCIAL HISTORY: Family denies alcohol, tobacco, or illicit drug use or abuse at this time, there is no other similar cardiomyopathy history in the family. REVIEW OF SYSTEMS: Unobtainable secondary to the patient's medical and mental condition. Since she has been here, no gross hematochezia or melena, no gross hematuria, no seizures, no bloody tracheal secretions. Review of systems otherwise as in the body of history above or unobtainable. PHYSICAL EXAMINATION: VITAL SIGNS: On examination at presentation over here, she was slightly hypothermic, temperature 96.2 degrees Fahrenheit, pulse was 136, respiratory rate was 38, blood pressure was initially measured at 110/87, O2 sats were 95%, inspired oxygen concentration at that time was not recorded. When I stopped by to see her, O2 sats were 98% that was on the assist control mode of ventilation with rate of 20, tidal volume of 450 and a PEEP of 6 and 60% FiO2. GENERAL: She is a middle-aged -[place] female with obvious proptosis, intubated, resting on the mechanical ventilator without significant patient-ventilator dyssynchrony. HEAD, EYES, EARS, NOSE AND THROAT: She is anicteric, no conjunctival erythema. Oropharynx is moist. Endotracheal tube is taped at the lips around 23 cm. No gross jugular venous distention, no thyromegaly. Her neck was supple. Grossly, there were no palpable lymph nodes in the supraclavicular or submandibular lymph node chains. LUNGS: Auscultation of both lung ac reveals diminished bilateral breath sounds, bibasilar inspiratory rales, no wheezing. HEART: Heart sounds 1 and 2 are heard, regular rate and rhythm with occasional extrasystoles and systolic flow murmur. ABDOMEN: Soft, full, bowel sounds are positive, nontender, no palpable hepatosplenomegaly. EXTREMITIES: Without overt digital clubbing, no cyanosis, no pedal edema. Pedal pulses are weak, but palpable. NEUROLOGIC: Pupils are equal, round, about 4 mm, reactive to light. Extraocular muscle movements could not be assessed. She was sedated at the time of my evaluation. No obvious spasticity. SKIN: Normal turgor without overt cellulitis. She had stasis dermatitis-type rash to her lower extremities. Again, she was sedated. LABORATORY DATA: From my review are as follows: Admission white cell count 8700, hemoglobin 13.5, hematocrit 43.7, platelet count 172. No significant band forms reported. INR was 3.86. Arterial blood gas showed a pH of 7.43, pCO2 of 33, pO2 of 122 that was on 60% FiO2. Serum sodium was 134, potassium 6.0, chloride was 83, bicarbonate was 20, BUN was 61, creatinine was 4.0, glucose was 299. AST 139, ALT 61. CPK 1224. Troponin was 0.32. Otherwise, liver function tests within normal limits. TSH was 9.160. However, free T4 was 0.76. Urine test was negative. Blood cultures, tracheal aspirate no growth to date at this point. A CT scan of her head was done at presentation. I have reviewed the radiologist's interpretation and it shows no acute intracranial abnormality. The chest x-ray was done. I have reviewed the chest x-ray and essentially shows an endotracheal tube with the tip in place in good position and gross cardiomegaly with, in particular, dilatation of the right atrium. A 2-D echocardiogram has been done also and I have discussed the findings with the developer advocate. ASSESSMENT AND PLAN: 1. Acute hypoxemic respiratory failure. 2. Syncope. 3. History of cardiomyopathy. 4. Hypothyroidism. 5. History of Graves' disease. 6. Obesity. 7. History of congestive heart failure. 8. History of hypertension. 9. History of chronic obstructive lung disease. PLAN: In a quick discussion, I have discussed the overall findings on the 2-D echo with the developer advocate. We will also try to do some other investigation. She had a diagnosis of hypertrophic cardiomyopathy somewhere with a negative amyloid biopsy; however, right now, she does seem to be in the throes of severe pulmonary hypertension with exacerbation. The syncopal episode is certainly not a good sign, but the family says this is the first time that it has happened. She should be on thyroid replacement therapy at home and she should be on anticoagulation. INR at this point, though, is 3.86. The plan will be as follows: 1. We will continue full mechanical ventilatory support. I will reduce the set rate at this point in time. Bronchodilators will be scheduled. Ventilator-associated pneumonia bundle has been instituted. We will continue to wean vasopressors to keep mean arterial pressures greater than or equal to about 60-65 mmHg. She is going to need directed therapy towards her pulmonary hypertension and the developer advocate has reached out to a center that can accept her. The plan will be to transfer her to that center for IV therapy and better hemodynamic monitoring to include most likely right and left ____ monitoring, hemodynamic monitoring. She will be placed on GI prophylaxis. Enteral nutrition will be the feeding modality of choice. Flu and pneumonia vaccination will be addressed per protocol. We have taken the time to explain the care plan to her caregivers and family in the room, they are in agreement. She is critically ill at high risk of from cardiopulmonary system deterioration. She is currently on life-sustaining interventions including mechanical ventilatory support and vasopressors. At this time, we spent about 40-45 minutes of critical care time without overlap and excluding any procedural time that may be necessary. [facility]# [id number] HAYLIE/PARAMJIT
== END 2019-06-04 18:15 | disposition short-term general hospital (02) | DRG 208 ==
LOC: ED 22:51 → CC1 06-04 04:02
PROVIDERS: ADMIT Internal Medicine; ATTEND Internal Medicine
PROC: 4A033R1 Measurement of Arterial Saturation, Peripheral, Percutaneous Approach (ICD-10-PCS; principal; 2019-06-04)
PROC: 5A1935Z Respiratory Ventilation, Less than 24 Consecutive Hours (ICD-10-PCS; 2019-06-04)
PROC: 0BH17EZ Insertion of Endotracheal Airway into Trachea, Via Natural or Artificial Opening (ICD-10-PCS; 2019-06-04)
PROC: 06HY33Z Insertion of Infusion Device into Lower Vein, Percutaneous Approach (ICD-10-PCS; 2019-06-04)
PROC: B54BZZA Ultrasonography of Right Lower Extremity Veins, Guidance (ICD-10-PCS; 2019-06-04)
DX: J96.01 Acute respiratory failure with hypoxia (principal); N17.9 Acute kidney failure, unspecified; M62.82 Rhabdomyolysis; I42.2 Other hypertrophic cardiomyopathy; I50.30 Unspecified diastolic (congestive) heart failure; I31.3 Pericardial effusion (noninflammatory); I11.0 Hypertensive heart disease with heart failure; R00.1 Bradycardia, unspecified; J44.9 Chronic obstructive pulmonary disease, unspecified; I95.9 Hypotension, unspecified; I27.20 Pulmonary hypertension, unspecified; I48.0 Paroxysmal atrial fibrillation; E05.00 Thyrotoxicosis with diffuse goiter without thyrotoxic crisis or storm; E89.0 Postprocedural hypothyroidism; E16.2 Hypoglycemia, unspecified; R55 Syncope and collapse; E66.9 Obesity, unspecified; E87.5 Hyperkalemia; Z79.899 Other long term (current) drug therapy; Z68.30 Body mass index [BMI] 30.0-30.9, adult
CPT/HCPCS: 36415; 70450; 71045; 74018; 76770; 80048; 80053; 80061; 80076; 82550; 82553; 82803; 82962; 84439; 84443; 84484; 84703; 85007; 85025; 85610; 85730; 86140; 87040; 87070; 87205; 93005; 93010; 93306; 94002; 94003; 96361; 96374; G0378; J0692; J1265; J1815; J2543; J3010; J3370; J7030